=== PATIENT | female | born 1975 ===

== ENCOUNTER 2021-03-02 19:38 | Emergency (ER) | payer MEDICARE, MEDICAID, SELFPAY ==
--- NOTE | ~2021-03-02 | XR_ITS ---
EXAMINATION: XR CHEST CLINICAL INFORMATION: Cough COMPARISON: None TECHNIQUE: 2 views of the chest were obtained. FINDINGS: Lung volumes are symmetric. No focal consolidation is seen. Central vasculature appears mildly prominent without overt pulmonary edema. No evidence of pneumothorax or pleural effusion. The cardiomediastinal contour is unremarkable. No acute osseous findings are seen. XR/XR chest 2V IMPRESSION: Mildly prominent central vasculature without evidence of edema. No focal consolidation.
[2021-03-02 20:41] VITALS: BP 150/99; PULSE 97; RESP 26; TEMP 36.6; O2SAT 100; BMI 79.4
--- NOTE | 2021-03-02 23:40 | ED.URI ---
HPI - URI/Sore Throat General Chief Complaint: Upper Respiratory Symptoms Stated Complaint: Flu like symptoms Time Seen by Provider: 03/02/21 22:42 Source: patient Mode of arrival: ambulatory Limitations: no limitations History of Present Illness MD elicited complaint: cough, rhinorrhea and other (headache) Pertinent past history: asthma Onset (ago): week(s) (few) Consistency: constant Severity: moderate Description of mucous: clear Able to tolerate fluids by mouth: Yes Exacerbating factors: exertion Relieving factors: nothing Associated symptoms: fever, headache and cough Treatments prior to arrival: acetaminophen Related Data Previous Rx's Medication Instructions Recorded albuterol sulfate 2 puff INHALATION QID PRN #6.7 g 03/02/21 albuterol sulfate 2.5 mg INHALATION Q4-6H PRN #75 ml 03/02/21 benzonatate [Tessalon Perles] 100 mg PO TID PRN #30 cap 03/02/21 prednisone 60 mg PO DAILY 4 Days #12 tab 03/02/21 Allergies Allergy/AdvReac Type Severity Reaction Status Date / Time morphine [MORPHINE] Allergy Mild SWELLING, Verified 03/02/21 20:40 pruritus, edema Pineapple Allergy Unknown Unknown Uncoded 03/02/21 20:40 Review of Systems Review of Systems: Constitutional : pos Fever, no Chills, positive fatigue, positive Malaise ENT/Mouth : no sore throat, positive runny nose Eyes: No Discharge, no change in vision Cardiovascular : No Chest Pain, No SOB Respiratory : pos Cough, No Sputum Gastrointestinal : No Nausea, No Vomiting, No Diarrhea Genitourinary : No Dysuria, No Urinary Frequency Musculoskeletal : no Myalgia , no joint pain Skin : No rash, no insect bite Neuro : pos Headache, no weaknes, no numbness All other systems reviewed and are negative PMFSH Past Medical History Attestation statement: The following information was validated with the patient. Medical History (Updated 03/02/21 @ 23:49 by Minnie Hayes DO) Asthma Social History Social History (Updated 03/02/21 @ 23:49 by Minnie Hayes DO) Patient Tobacco Use Status: Never used Tobacco Use of substances other than those prescribed or required for medical reasons: No Advance Directives: No Advance Directives Information Provided: No Patient : No Physical Exam Vital Signs: Vital Signs: Last Vital Signs Temp 97.8 F 03/02/21 20:41 Pulse 97 03/02/21 20:41 Resp 26 H 03/02/21 20:41 BP 150/99 H 03/02/21 20:41 Pulse Ox 100 03/02/21 20:41 Body Mass Index 79.4 Appearance: Alert. Oriented X3. No acute distress. Eyes: Pupils equal, round and reactive to light. ENT: Pharynx normal. Neck: Normal inspection. Neck supple. CVS: Normal heart rate and rhythm. Pulses normal. Respiratory: No respiratory distress. Breath sounds normal. Dry cough Abdomen: Soft and nontender. Skin: Skin warm and dry. Normal skin color. Normal skin turgor. Extremities: No lower extremity edema. Neuro: Oriented X 3. No motor deficit. No sensory deficit. MDM - URI/Sore Throat MDM Narrative Medical decision making narrative: 45 yo female with cold symptoms not toxic, no hypoxia no resp distress - will obtain CXR and COVID swab, start on steroids and albuterol anti tussives, dispo per results Lab Data Labs: Lab Results 03/02/21 Range/Units 23:46 COVID-19 ([facility]) Negative (Negative) COVID-19 Clin Com See Note Discharge Plan Discharge Clinical Impression: Upper respiratory infection Qualifiers: URI type: unspecified viral URI Qualified Code(s): J06.9 - Acute upper respiratory infection, unspecified Patient Disposition: Home, Self-Care Instructions: Upper Respiratory Infection (ED) Additional Instructions: return to ED for any worsening symptoms or concerns CHEST xray negative for pneumonia NEGATIVE FOR COVID Prescriptions: New albuterol sulfate 2.5 mg /3 mL (0.083 %) solution for nebulization 2.5 mg inhalation Q4-6H PRN (Reason: bronchospasm) Qty: 75 RF: 0 prednisone 20 mg tablet 60 mg PO DAILY 4 Days Qty: 12 RF: 0 albuterol sulfate 90 mcg/actuation HFA aerosol inhaler 2 puff inhalation QID PRN (Reason: shortness of breath or wheezing) Qty: 6.7 RF: 0 benzonatate [Tessalon Perles] 100 mg capsule 100 mg PO TID PRN (Reason: cough) Qty: 30 RF: 0 Referrals: Juan Yen MD [Primary Care Provider] - 3 days (if not better)
[2021-03-02] MEDS: Albuterol Sulfate 90 MCG 8 GM INHALER 2 PUFF INHALE (23:53)
[2021-03-03 00:06] LABS: COVID-19 Test Negative (Negative)
[2021-03-03] MEDS: guaiFENesin 100 MG/5 ML LIQUID PO (00:20)
[2021-03-03] MEDS: predniSONE 20 MG TABLET 60 MG PO (00:20)
[2021-03-03] MEDS: Benzonatate 100 MG CAPSULE 200 MG PO (00:20)
[2021-03-03] MEDS: Ibuprofen 600 MG TABLET PO (00:20)
== END 2021-03-03 00:32 | disposition home or self-care (01) ==
LOC: HO.ED 23:50
PROVIDERS: Emergency Provider Emergency Medicine; PCP Physical Medicine & Rehabilitation
DX: J06.9 Acute upper respiratory infection, unspecified (principal); R05 Cough; R51.9 Headache, unspecified; Z20.822 Contact with and (suspected) exposure to COVID-19
CPT/HCPCS: 36415; 71046; 87635; 99283

== ENCOUNTER 2023-03-03 14:03 | Emergency (ER) | payer OTHER, SELFPAY ==
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
--- NOTE | ~2023-03-03 | XR_ITS ---
EXAMINATION: XR ANKLE, RIGHT CLINICAL INFORMATION: Pain. COMPARISON: None available. TECHNIQUE: 4 views of the right ankle. FINDINGS: There is a soft tissue swelling of the lower extremity. There is soft tissue swelling of the medial greater than the lateral aspect of the ankle. Curvilinear densities overlying the posterior aspect of the lateral radiograph, limiting evaluation. On the crosstable lateral projection, is lucency and bony irregularity of the posterior aspect of the calcaneus, suspicious for displaced fracture. There is bony irregularity projected along the medial aspect of the talus on the frontal projection, which could be related to the calcaneal fracture. No talar abnormality is on the remainder of the views. Distal tibia and fibula appear intact. Anterior calcaneal process and fifth metatarsal base appear intact. XR/XR ankle RT min 3V IMPRESSION: Marked soft tissue swelling. Findings suspicious for a displaced fracture of the posterior aspect of the calcaneus. Bony irregularity seen medial to the talus in one of the views, suspected related to the calcaneal fracture rather than a talar fracture. Clinically correlate. Further evaluation with CT/additional imaging as clinically warranted.
--- NOTE | ~2023-03-03 | CT_ITS ---
Examination: CT ankle RT wo IV con Indication: Reason for Exam Pain at ankle and XR equivocal for rads Comparison: No pertinent prior studies are currently available for comparison. Technique: Multiple serial helical CT scan images through the right ankle were obtained. Soft tissue and bony algorithms were evaluated. Coronal and sagittal reformatted images were obtained on the technologist workstation. Contrast was not utilized. This CT examination was performed using dose optimization techniques as appropriate, variously including the following: *Automated exposure control *Adjustment of mA and/or kV according to patient size (this includes techniques or standardized protocols for targeted exams where dose is matched to indication/reason for exam; i.e. extremities or head) *Use of iterative reconstruction technique. DLP: 169 mGy cm Findings: No significant ankle joint effusion. Bones are normal anatomic alignment. I do not appreciate any cortical disruption or trabecular irregularity to suggest underlying fracture. Bones are normal anatomic alignment with no dislocation appreciated. Prominent calcaneal heel spur is noted at the attachment point of the Achilles tendon and plantar aponeurosis. CT/CT ankle RT wo IV con Impression: 1. No acute bony abnormality seen. Bones are normal in alignment. No cortical disruption or trabecular irregularity to suggest underlying fracture. 2. Prominent calcaneal heel spur noted at the attachment point of the Achilles tendon and plantar aponeurosis.
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
[2023-03-03 14:10] VITALS: BP 140/90; PULSE 116; O2SAT 98
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
[2023-03-03 14:33] VITALS: BP 149/77; PULSE 92; RESP 18; TEMP 36.2; O2SAT 99; BMI 60.5
[2023-03-03] MEDS: Acetaminophen 325 MG TABLET 975 MG PO (19:21)
[2023-03-03] MEDS: Ketorolac Tromethamine 15 MG/ML VIAL IM (19:21)
== END 2023-03-03 22:40 | disposition home or self-care (01) ==
PROVIDERS: Emergency Provider Student in an Organized Health Care Education/Training Program
DX: S96.911A Strain of unspecified muscle and tendon at ankle and foot level, right foot, initial encounter (principal); V43.52XA Car driver injured in collision with other type car in traffic accident, initial encounter; M25.511 Pain in right shoulder; Y93.9 Activity, unspecified; Y92.410 Unspecified street and highway as the place of occurrence of the external cause; Y99.9 Unspecified external cause status
CPT/HCPCS: 71250; 73030; 73610; 73700; 96372; 99283; 99284; J1885